=== PATIENT | female | born 1965 | race Caucasian/White ===

== ENCOUNTER 2017-09-10 07:04 | Day surgery (SDC) | payer BC ==
[~2017-09-10] VITALS: Ht 160 cm; Wt 93.4 kg
[2017-09-10] MEDS ORDERED: SIMETHICONE 40 MG/0.6 ML ML ONE (07:23)
[2017-09-10 07:55] LABS: HCG,QUAL RESULT NEGATIVE (NEGATIVE)
[2017-09-10] MEDS: MEPERIDINE HCL/PF 100 MG/ML AMP ONE ×3 (08:45→08:55)
[2017-09-10] MEDS: MIDAZOLAM HCL 5 MG/5 ML VIAL ONE ×4 (08:45→08:51)
[2017-09-10 13:40] VITALS: BP_SYST 108
== END 2017-09-10 10:10 | disposition home or self-care (01) ==
LOC: SOR 07:04 → SMU 07:06 → SOR 10:10
PROVIDERS: ATTEND Internal Medicine Gastroenterology
DX: Z12.11 Encounter for screening for malignant neoplasm of colon (principal); K57.30 Diverticulosis of large intestine without perforation or abscess without bleeding; K64.8 Other hemorrhoids; E78.5 Hyperlipidemia, unspecified; E11.9 Type 2 diabetes mellitus without complications; I10 Essential (primary) hypertension; E66.9 Obesity, unspecified; Z68.36 Body mass index [BMI] 36.0-36.9, adult
CPT/HCPCS: 45378; 84703; J2175; J2250

== ENCOUNTER 2017-10-26 08:47 | Outpatient (CLI) | payer BC | END 2017-10-26 20:20 | disposition home or self-care (01) | LOC: SMA 08:47 | DX: Z12.31 Encounter for screening mammogram for malignant neoplasm of breast (principal) | CPT/HCPCS: 77067 ==